=== PATIENT | male | born 1990 | race Caucasian/White ===

== ENCOUNTER → 2017-02-12 | Outpatient (CLI) | payer OTHER | LOC: LAB 07:12 | PROVIDERS: ATTEND Urology | DX: N46.9 Male infertility, unspecified (principal) | CPT/HCPCS: 89320 ==

== ENCOUNTER → 2018-02-22 | Outpatient (CLI) | payer OTHER ==
[~2018-02-22] MED LIST: CATHETER FLUSH 10 ML SYR IV PRN
--- NOTE | 2018-02-22 12:35 | Diagnostic Imaging Report ---
HEPATOBILIARY SCAN DATE: February 22, 2018. INDICATION: 27-year-old male, right upper quadrant abdominal pain. PROCEDURE: 5.20 mCi of Tc-99m Choletec was administered intravenously and serial anterior planar images over the liver and upper abdomen were obtained. FINDINGS: There is homogenous activity throughout the liver with good clearance of background activity. This indicates good hepatocellular function. Biliary tree activity is seen at 10 minutes. The gallbladder is seen at 25 minutes. There is no enterogastric reflux. The biliary tree is patent. There is no evidence of acute cholecystitis. Ensure was administered for calculation of gallbladder ejection fraction. Gallbladder ejection fraction was calculated to be 21%. IMPRESSION: 1. No evidence of acute cholecystitis. 2. Reduced gallbladder ejection fraction of 21% which may be seen in the setting of biliary dyskinesia and/or chronic cholecystitis. Dictated by: Dictated on workstation # [id number]
== END ==
LOC: CARD 09:47
PROVIDERS: ATTEND Surgery
DX: R10.11 Right upper quadrant pain (principal)
CPT/HCPCS: 78227